=== PATIENT | female | born 1995 | race Caucasian/White ===

== ENCOUNTER 2018-03-13 18:16 | Inpatient (IN) | payer OTHER, SELFPAY ==
[2018-03-13] MEDS: Lactated Ringers 1,000 ML 50 ML IV ×2 (19:09→20:29)
[2018-03-13 19:19] LABS: ROM Internal Control Test YES-OK TO RESULT pt. (Internal QC)
[2018-03-13 19:20] LABS: ROM Patient Test POSITIVE (Negative)
[2018-03-13 19:24] LABS: Hematocrit 32.8 % (37-47); Mean Corp Hgb Conc 33.5 g/gl (32-36); Mean Corpuscular Hgb 29.4 pg (27.0-32.0); Mean Corpuscular Volume 87.7 fL (81-99); Platelet Count 186 K/mm3 (150-450); RBC Distribution Width CV 13.8 % (11.6-14.6); RBC Distribution Width SD 44.1 fl (35.1-43.9); Red Blood Count 3.74 M/mm3 (4.2-5.4); White Blood Count 10.5 K/mm3 (4.4-11.0)
[2018-03-13 19:25] LABS: Scan Indicated on CBC? Y/N NO
--- NOTE | 2018-03-13 19:31 | PCM.HP.OB ---
History Date of Admission: 03/13/18 Final ANGELINA: 03/10/18 Gestational age: 40 Weeks and 3 Days History of this : GBS negtive UTI Anemia Pertinent Past Medical History: H/o hyperthyroidism Smoking Status: Never smoker Alcohol: None Drug Use: none Number of Fetus(es): 1 Physical Exam General: Alert, Oriented x3 Abdomen: Soft, Non Tender, Non-Distended, Gravid Estimated gestational size: Appropriate for gestational size Cervix Dilation (cm): 3 Station: -2 - 3 Effacement (%): 80 Assessment/Plan 23yo female in labor & with SROM Admit to L&D GBS negative Epidural as desired EFW less thatn 4500g, patient with adequate pelvis Routine care FWB - fhts 140 with mod variability, accels
[2018-03-13 19:44] VITALS: BMI 27.8
[2018-03-13] MEDS: fentaNYL-bupivacaine (epidural) 100 ML BAG EPIDURAL (20:53)
[2018-03-14] MEDS: Lactated Ringers 1,000 ML 50 ML IV (00:36)
[2018-03-14] MEDS: Oxytocin 30 units/NS 500 ml 30 UNITS/500 ML IV.SOLN 334 UNITS IV (01:36)
[2018-03-14] MEDS: Oxytocin 30 units/NS 500 ml 30 UNITS/500 ML IV.SOLN 167 UNITS IV (02:06)
--- NOTE | 2018-03-14 02:23 | PCM.OB.VAG ---
Vaginal Delivery Maternal Presentation: Active Labor Amniotic Membrane Rupture Type: Spontaneous Amniotic Fluid Description: Clear Final ANGELINA: 03/10/18 Gestational age: 40 Weeks and 4 Days Date of Procedure: 03/14/18 Pre-Operative Diagnosis: Labor Post-Operative Diagnosis: Labor Surgery/ Procedure Performed: Spontaneous Vaginal Delivery Type of Anesthesia: Epidural Description of Procedure: Patient prepped & draped when c/c/+3. She pushed & delivered head. Shoulders & body spontaneously followed. placed on maternal abdomen. 3vc clamped & cut in delayed fashion. Placenta delivered with gentle traction. Good uterine tone obtained Presentation: Vertex Placental Delivery Description: Expressed Placenta Disposition: [facility] Cord Vessel Description: 3 Vessels Cord Entanglement: None Drain: Elliott to straight drain Estimated Blood Loss: 400ml Infant A gender: Male (1 minute): 8 (5 minute): 9 Episiotomy Description: None Laceration: 2nd degree - perineal - repaired with 3-0 vicryl Medications given after delivery: IV Pitocin Complications: None
[2018-03-14] MEDS: Ondansetron 4 MG/2 ML Vial IV (02:39)
[2018-03-14] MEDS: Lactated Ringers 1,000 ML 999 ML IV (02:51)
--- NOTE | 2018-03-14 02:52 | PCM.PN.BLA ---
Progress Note S: Called to room by RN as patient reported feeling dizzy & nauseated. VB is stable. O: BP was 80/52, but most recently was 90/62 HR 100 (has intermittently been higher - 120) O2 sat 99-100% abd - ff mid & below umb A&P: PPD#0 patient Suspect volume depletion Start 2nd IV Line & give fluid bolus Stat CBC Continue close monitoring
[2018-03-14 03:13] LABS: Hemoglobin 9.2 g/dl (12.0-15.0); Mean Corp Hgb Conc 32.9 g/gl (32-36); Mean Corpuscular Hgb 29.6 pg (27.0-32.0); Mean Platelet Vol. 9.8 fl (6.2-12.0); Platelet Count 175 K/mm3 (150-450); RBC Distribution Width CV 13.7 % (11.6-14.6); RBC Distribution Width SD 43.7 fl (35.1-43.9); Red Blood Count 3.11 M/mm3 (4.2-5.4)
[2018-03-14 03:15] LABS: Scan Indicated on CBC? Y/N NO
[2018-03-14 03:26] LABS: ALB/GLOB Ratio 0.6 RATIO (0.9-2.4); AST(SGOT) 22 U/L (15-37); Alanine Aminotransfer ALT/SGPT 23 U/L (13-56); Albumin, Serum 2.1 g/dL (3.2-5.0); Alkaline Phosphatase 157 U/L (45-117); Anion Gap 10 (5-15); BUN 10 mg/dL (7-18); BUN/Creat Ratio 15.1 RATIO (10-20); Calcium,Total 8.2 mg/dL (8.5-10.1); Chloride 107 mmol/L (98-107); Creatinine, Serum 0.66 mg/dL (0.55-1.02); EST Glomerular Filtration Rate 115 mL/min (>60); Est Glom Filt Rate - Afr Amer 139 mL/min (>60); Estimated Creatinine Clearance 117.25 ml/min; Globulin 3.6 g/dL (2.2-4.2); Glucose 115 mg/dL (74-106); Potassium 3.7 mmol/L (3.5-5.1); Protein, Total 5.7 g/dL (6.4-8.2); Sodium Level 140 mmol/L (136-145)
[2018-03-14] MEDS: Lactated Ringers 1,000 ML 200 ML IV (03:51)
[2018-03-14] MEDS: 0.9% Saline Lock 10 ML Syringe IV (03:53)
--- NOTE | 2018-03-14 06:25 | NURSING ---
epidural cath d/c with blue tip intact
[2018-03-14 08:47] VITALS: BP 99/54; PULSE 96; RESP 18; TEMP 37.2; O2SAT 97
[2018-03-14] MEDS: Ibuprofen 600 MG Tablet PO ×2 (08:57→17:35)
[2018-03-14] MEDS: Senna/Docusate Sodium 1 Tablet PO (08:58)
[2018-03-14 11:02] LABS: T4 Free Direct 0.83 ng/dL (0.76-1.46); Thyroid Stim Hormone (TSH) 1.17 uIU/mL (0.358-3.74)
[2018-03-14 11:53] VITALS: BP 105/43; PULSE 99; RESP 18; TEMP 36.6; O2SAT 98
[2018-03-14] MEDS: Ferrous Sulfate 325 MG Tablet PO (13:10)
[2018-03-14] MEDS: Acetaminophen 500 MG Tablet 1000 MG PO ×2 (13:10→21:48)
[2018-03-14 16:00] VITALS: BP 91/52; PULSE 85; RESP 18; TEMP 36.4; O2SAT 97
[2018-03-14 20:33] VITALS: BP 107/66; PULSE 102; RESP 16; TEMP 36.6; O2SAT 99
[2018-03-14 23:59] VITALS: BP 92/48; PULSE 93; RESP 18; TEMP 36.6; O2SAT 97
[2018-03-15 03:19] VITALS: BP 104/57; PULSE 91; RESP 18; TEMP 36.6; O2SAT 97
[2018-03-15] MEDS: Ibuprofen 600 MG Tablet PO ×2 (03:35→15:13)
[2018-03-15 08:00] VITALS: BP 98/61; PULSE 77; RESP 16; TEMP 36.9
--- NOTE | 2018-03-15 08:46 | DCINST_ITS ---
Discharge Diet: No Restrictions Discharge Activity: May Drive, May Shower May resume sexual activity in: 6 weeks Additional Instructions: If you experience any of the following, contact your healthcare provider. * Bleeding that soaks a pad every hour for 2 hours * Fever 100.4 or higher * Unrelieved incision or abdominal pain * Swelling, redness, discharge or bleeding from your incision or episiotomy site * Your incision begins to separate * Problems urinating (including inability to urinate or burning while urinating) . * Visual changes * Severe headache * Flu-like symptoms * Pain or redness in one of both of your breasts * Pain, warmth, tenderness or swelling in your legs, especially the calf area * Frequent nausea and vomiting * Symptoms of depression or anxiety If you experience any of the following, call 911 or go to the nearest Emergency Room. * Chest pain * Problems breathing * Seizure activity * Partial or complete paralysis of a body part, slurred speech, weakness or drooping of the face, or a sudden inability to walk or hold your balance Allergies/Adverse Reactions: Allergies No Known Allergies Allergy (Verified 03/13/18 19:46) Medications to take at Discharge Vits [Prenatabs FA ] 1 tablet PO DAILY 03/13/18 Docusate Sodium [Colace] 100 mg PO BID PRN PRN #60 cap 03/15/18 Ferrous Sulfate [Iron] 325 mg PO BID #60 tab 03/15/18 The following prescriptions were given: Docusate Sodium [Colace] 100 mg PO BID PRN PRN #60 cap PRN Reason: Constipation Ferrous Sulfate [Iron] 325 mg PO BID #60 tab
--- NOTE | 2018-03-15 08:46 | PCM.DCVAG ---
Discharge Diet: No Restrictions Discharge Activity: May Drive, May Shower May resume sexual activity in: 6 weeks Additional Instructions: If you experience any of the following, contact your healthcare provider. Bleeding that soaks a pad every hour for 2 hours Fever 100.4 or higher Unrelieved incision or abdominal pain Swelling, redness, discharge or bleeding from your incision or episiotomy site Your incision begins to separate Problems urinating (including inability to urinate or burning while urinating). Visual changes Severe headache Flu-like symptoms Pain or redness in one of both of your breasts Pain, warmth, tenderness or swelling in your legs, especially the calf area Frequent nausea and vomiting Symptoms of depression or anxiety If you experience any of the following, call 911 or go to the nearest Emergency Room. Chest pain Problems breathing Seizure activity Partial or complete paralysis of a body part, slurred speech, weakness or drooping of the face, or a sudden inability to walk or hold your balance Allergies/Adverse Reactions: Allergies No Known Allergies Allergy (Verified 03/13/18 19:46) Medications to take at Discharge Vits [Prenatabs FA ] 1 tablet PO DAILY 03/13/18 Docusate Sodium [Colace] 100 mg PO BID PRN PRN #60 cap 03/15/18 Ferrous Sulfate [Iron] 325 mg PO BID #60 tab 03/15/18 The following prescriptions were given: Docusate Sodium [Colace] 100 mg PO BID PRN PRN #60 cap PRN Reason: Constipation Ferrous Sulfate [Iron] 325 mg PO BID #60 tab
--- NOTE | 2018-03-15 08:46 | PCM.PN.OB ---
Subjective: Pain controlled - Physical Exam General: Alert, Oriented x3 Abdomen: Soft, Non Tender, Non-Distended - ff mid & below umb Extremities: No Calf Tenderness Vital Signs Temp Pulse Resp BP Pulse Ox 98.5 F 77 16 98/61 97 03/15/18 08:00 03/15/18 08:00 03/15/18 08:00 03/15/18 08:00 03/15/18 03:19 Oxygen Delivery Method Room Air Weight: 169 lb 12.095 oz Body Mass Index (BMI) 27.8 Intake and Output for Last 24 Hours 03/13/18 03/14/18 03/15/18 23:59 23:59 23:59 Intake Total 2501 / 2501 Output Total 1300 / 1300 Balance 1201 / 1201 Laboratory Tests Past 24 Hrs 03/14/18 03/14/18 10:00 10:00 TSH 1.17 Free T4 0.83 Total T3 Pending Medical Necessity - Tobacco Use Smoking Status: Never smoker Assessment/Plan PPD#1 Routine care Possible d/c home later today per patient request
[2018-03-15] MEDS: Ferrous Sulfate 325 MG Tablet PO (09:05)
[2018-03-15] MEDS: Senna/Docusate Sodium 1 Tablet PO (09:05)
[2018-03-15 14:00] VITALS: BP 102/62; PULSE 113; RESP 16; TEMP 37.1
[2018-03-16 08:48] LABS: T3 Total - Triiodothyronine 1.34 ng/mL (0.6-1.81)
== END 2018-03-15 16:05 | disposition home or self-care (01) | DRG 775 ==
LOC: WPOUT 18:36 → WP 18:37 → WPOUT 18:43
PROVIDERS: Advanced Practice Midwife; Admitting Provider Obstetrics & Gynecology; Visit Provider Obstetrics & Gynecology
DX: O48.0 Post-term pregnancy (principal); O70.1 Second degree perineal laceration during delivery; Z3A.40 40 weeks gestation of pregnancy; Z37.0 Single live birth; R11.0 Nausea; R42 Dizziness and giddiness
CPT/HCPCS: 59050; 80053; 84112; 84439; 84443; 84480; 85027; 86850; 86900; 99218; J7120; A4216; G0378; J2405